=== PATIENT | male | born 1985 | race Caucasian/White ===

== ENCOUNTER 2019-04-22 15:37 | Emergency (ER) | payer MEDICAID ==
[~2019-04-22] VITALS: Ht 177.8 cm; Wt 86.2 kg
[2019-04-22 15:51] VITALS: BP_SYST 126
[2019-04-22] MEDS ORDERED: LIDOCAINE/EPI 2% 1:100000 20 ML VIAL INJ ONE (16:00)
[2019-04-22] MEDS ORDERED: IBUPROFEN 600 MG TABLET PO ONE (16:00)
[2019-04-22 17:12] VITALS: BP_SYST 126
== END 2019-04-22 17:12 | disposition home or self-care (01) ==
LOC: SED 15:37
DX: L02.416 Cutaneous abscess of left lower limb (principal); R03.0 Elevated blood-pressure reading, without diagnosis of hypertension; F12.90 Cannabis use, unspecified, uncomplicated; F17.210 Nicotine dependence, cigarettes, uncomplicated; Z71.6 Tobacco abuse counseling
CPT/HCPCS: 99283

== ENCOUNTER 2019-04-24 16:26 | Inpatient (IN) | payer MEDICAID ==
[~2019-04-24] VITALS: Ht 177.8 cm; Wt 87.1 kg
[2019-04-24 17:03] VITALS: BP_SYST 117
--- NOTE | 2019-04-24 17:12 | NUR ---
Pt called for bed placement no answer
--- NOTE | 2019-04-24 17:50 | NUR ---
Patient to ER bed 7 to gown for evaluation. Side rails up. Report given to Haven HOGAN.
--- NOTE | 2019-04-24 18:08 | NUR ---
ISAIAS Rinaldi examining patient.
--- NOTE | 2019-04-24 18:10 | NUR ---
Dr. Goodman at bedside.
--- NOTE | 2019-04-24 18:12 | NUR ---
Patient brought in for wound check to left thigh. Patient has increased swelling and pain to area. Site 15 cm x 33 cm. Patient on bactrim and keflex PO. Pain 8/10. Denies any fever. No other complaints/injuries per patient or as noted. Will continue to monitor.
[2019-04-24] MEDS ORDERED: MORPHINE 4 MG/ML INJ. SYRINGE IVP ONE (18:15)
[2019-04-24] MEDS ORDERED: DIPHENHYDRAMINE INJ 50 MG/ML VIAL IVP ONE (18:15)
[2019-04-24] MEDS ORDERED: VANCOMYCIN HCL 1,000 MG in NS 250 ML IV ONE (18:15)
--- NOTE | 2019-04-24 18:28 | NUR ---
Radiology at bedside for xrays.
--- NOTE | 2019-04-24 18:30 | NUR ---
# 18 gauge angiocath placed to LAC. Use of asceptic technique. Opsite placed over site. Blood return noted. Blood for lab drawn from site. Flushed with 10 cc of normal saline. No evidence of infiltration noted. Patient tolerated well.
--- NOTE | 2019-04-24 18:31 | NUR ---
Blood cultures drawn, prior to administration of antibiotic.
[2019-04-24] MEDS ORDERED: VANCOMYCIN HCL 1000 MG/VIAL IV ONE (18:35)
--- NOTE | 2019-04-24 18:35 | NUR ---
Medicated per QUALITY ASSURANCE MANAGER orders.
[2019-04-24 18:41] LABS: BASOPHILS % (AUTO) 0.1 % (0.0-2.0); EOSINOPHILS # (AUTO) 0.2 K/uL (0.0-0.4); EOSINOPHILS % (AUTO) 1.7 % (0.0-4.0); HEMATOCRIT 43.2 % (36-54); HEMOGLOBIN 15.2 g/dL (14.0-18.0); LYMPHOCYTES # (AUTO) 2.3 K/uL (1.0-5.5); LYMPHOCYTES % (AUTO) 21.9 % (20.5-51.5); MEAN CORPUSCULAR HEMOGLOBIN 31 pg (27-31); MEAN CORPUSCULAR HGB CONC 35 % (32-36); MEAN CORPUSCULAR VOLUME 89 fL (79.0-98.0); MONOCYTES # (AUTO) 1.2 K/uL (0.0-1.0); MONOCYTES % (AUTO) 11.2 % (1.7-9.3); NEUTROPHILS % (AUTO) 65.1 % (40.0-70.0); PLATELET COUNT (AUTO) 258 K/uL (130-430); RED BLOOD CELL COUNT(AUTO) 4.87 MIL/uL (4.2-6.2); RED CELL DISTRIBUTION WIDTH 12.9 % (9.0-15.0); WHITE BLOOD COUNT (AUTO) 10.7 K/uL (4.8-10.8)
[2019-04-24] MEDS ORDERED: LIDOCAINE/EPI 2% 1:100000 20 ML VIAL INJ ONE (18:45)
[2019-04-24 18:54] LABS: CALCIUM 8.5 mg/dL (8.4-11.0); CREATININE 1.11 mg/dL (0.55-1.30); POTASSIUM 3.8 mmol/L (3.5-5.1)
[2019-04-24 19:00] LABS: ALBUMIN 3.2 g/dL (3.4-4.8); TOTAL BILIRUBIN 0.1 mg/dL (0.0-1.0)
--- NOTE | 2019-04-24 19:17 | NUR ---
Site to left thigh cleansed with normal saline and betadine. Site measures approximately 15 cm x 33 cm dressing applied. Tetanus vaccination current.
--- NOTE | 2019-04-24 19:19 | NUR ---
Patient states he is full code
--- NOTE | 2019-04-24 19:19 | NUR ---
Patient reports taking no medication
--- NOTE | 2019-04-24 19:37 | NUR ---
Dr. Payne at bedside speaking to patient.
[2019-04-24] MEDS ORDERED: TEMAZEPAM 15 MG CAPSULE PO PRN (20:00)
[2019-04-24] MEDS ORDERED: ACETAMINOPHEN 325 MG TABLET PO PRN (20:00)
[2019-04-24] MEDS ORDERED: HYDROcodone/ACETAMIN 5-325 MG TAB (NORCO/ VICODIN) PO PRN (20:00)
[2019-04-24] MEDS ORDERED: HYDROcodone/ACETAMIN 10-325 MG TAB PO PRN (20:00)
--- NOTE | 2019-04-24 20:35 | NUR ---
Patient will be admitted to care of Dr. Payne. Admitted to Med surg unit. Will go to room 101B. Summary report printed. Report will be given at bedside.
[2019-04-24] MEDS ORDERED: ENOXAPARIN SODIUM 40 MG/0.4 ML SYRINGE SUBCUT SCH (21:00)
[2019-04-24] MEDS ORDERED: DOXYCYCLINE HYCLATE 100 MG CAPSULE PO SCH (21:00)
[2019-04-24 21:32] LABS: BILIRUBIN,URINE NEGATIVE (NEGATIVE); BLOOD, URINE NEGATIVE (NEGATIVE); CLARITY/URINE OTHER (CLEAR); COLOR,URINE YELLOW (YELLOW); GLUCOSE,URINE NEGATIVE (NEGATIVE); KETONES,URINE NEGATIVE (NEGATIVE); LEUKOCYTE ESTERASE ,URINE TRACE (NEGATIVE); NITRITE, URINE NEGATIVE (NEGATIVE); PROTEIN URINE TRACE (NEGATIVE)
--- NOTE | 2019-04-24 21:35 | NUR ---
ADMISSION NOTE Received patient from ER via gurney. Patient admitted with diagnosis of CELLULITIS. Patient is awake, alert, oriented X 4, ambulated to bed, steady gait. Patient oriented to hospital room, call light, toileting, pain management and safety-teach back done. Personal belongings checked and Belongings List documented. Call light within reach.
--- NOTE | 2019-04-24 21:40 | NUR ---
INITIAL NOTES Patient is resting with significant other at bedside. No signs of acute respiratory distress observed. IV at Left AC patent, dressings c/d/i. Call light within reach, bed alarm refused after patient education on risks and benefits. Bed at lowest position. Will continue to monitor.
[2019-04-24 22:01] LABS: BARBITURATE, URINE NEGATIVE (NEG <=200); METHAMPHETAMINES SCREEN,URINE POSITIVE (NEG <=500); URINE AMPHETAMINE POSITIVE (NEG <=500)
[2019-04-24 22:02] LABS: BENZODIAZEPINE, URINE POSITIVE (NEG <=150); CANNABINOID, URINE POSITIVE (NEG <=50); COCAINE, URINE NEGATIVE (NEG <=150); OPIATE, URINE POSITIVE (NEG <=100); PHENCYCLIDINE SCREEN,URINE NEGATIVE (NEG <=25); UR TRICYCLIC ANTIDEPRESSANTS NEGATIVE (NEG <=300); URINE METHADONE NEGATIVE (NEG <=200); URINE OXYCODONE SCREEN NEGATIVE (NEG <=100); URINE PROPOXYPHENE SCREEN NEGATIVE (NEG <=300)
[2019-04-24] MEDS ORDERED: CEFAZOLIN 1 GM IVPB PREMIX 100 ML IV ONE (22:11)
[2019-04-24 22:22] VITALS: BP_SYST 125
--- NOTE | 2019-04-24 22:22 | NUR ---
CONSULTATION PAGED/CALLED Reason for Consultation: CELLULITIS Person Who was Notified: CLAUDY Consulting Physician: DR. COVARRUBIAS Journeyman [employer] Specialty: Ordering Physician: DR. WHITE
--- NOTE | 2019-04-24 22:44 | NUR ---
Patient is assisted with significant other and medical staff outside to smoke on wheelchair. Will continue to monitor.
[2019-04-24 22:59] LABS: BACTERIA,URINE FEW /HPF (None Seen); RBC,URINE 0-3 /HPF (0-3)
[2019-04-24 23:00] LABS: MUCUS,URINE 1+ /LPF (None Seen)
[2019-04-24] MEDS: CEFAZOLIN 1 GM IVPB PREMIX 50 ML IV SCH (23:28)
[2019-04-25] VITALS: BP_SYST 124
[2019-04-25] MEDS ORDERED: FLU VACC QS2019-20 36MOS UP/PF 60 MCG/0.5 ML SYRINGE I.M. SCH
--- NOTE | 2019-04-25 00:38 | NUR ---
Patient is asleep, eyes closed. No signs of acute respiratory distress observed. Left foot elevated with pillow. Safety precautions in place. Will continue to monitor.
--- NOTE | 2019-04-25 02:11 | NUR ---
Patient is resting, eyes closed. No signs of SOB. Safety precautions in place. Will continue to monitor.
--- NOTE | 2019-04-25 04:13 | NUR ---
Patient is asleep, no signs of acute respiratory distress observed. Safety precautions in place. Will continue to monitor.
[2019-04-25] MEDS: CEFAZOLIN 1 GM IVPB PREMIX 50 ML IV SCH (05:40)
--- NOTE | 2019-04-25 06:36 | NUR ---
CLOSING NOTES Patient is resting, no signs of acute respiratory distress observed. Foam dressing c/d/i. IV dressings c/d/i. Bed alarm refused after risks and benefits explained and patient verbalizes understanding. Call light within reach, and bed at lowest position. Will endorse shift to oncoming shift.
[2019-04-25 06:41] LABS: BASOPHILS % (AUTO) 0.1 % (0.0-2.0); EOSINOPHILS # (AUTO) 0.2 K/uL (0.0-0.4); EOSINOPHILS % (AUTO) 2.1 % (0.0-4.0); HEMATOCRIT 42.9 % (36-54); HEMOGLOBIN 14.9 g/dL (14.0-18.0); LYMPHOCYTES % (AUTO) 22.1 % (20.5-51.5); MEAN CORPUSCULAR HEMOGLOBIN 31 pg (27-31); MEAN CORPUSCULAR HGB CONC 35 % (32-36); MEAN CORPUSCULAR VOLUME 89 fL (79.0-98.0); MONOCYTES # (AUTO) 1.1 K/uL (0.0-1.0); MONOCYTES % (AUTO) 12.4 % (1.7-9.3); NEUTROPHILS # (AUTO) 5.7 K/uL (1.8-7.7); NEUTROPHILS % (AUTO) 63.3 % (40.0-70.0); PLATELET COUNT (AUTO) 248 K/uL (130-430); RED BLOOD CELL COUNT(AUTO) 4.84 MIL/uL (4.2-6.2); RED CELL DISTRIBUTION WIDTH 13.1 % (9.0-15.0); WHITE BLOOD COUNT (AUTO) 9.1 K/uL (4.8-10.8)
[2019-04-25 07:30] LABS: ALBUMIN 2.9 g/dL (3.4-4.8); CALCIUM 8.1 mg/dL (8.4-11.0); CREATININE 0.85 mg/dL (0.55-1.30); POTASSIUM 3.5 mmol/L (3.5-5.1); TOTAL BILIRUBIN 0.3 mg/dL (0.0-1.0)
--- NOTE | 2019-04-25 08:00 | NUR ---
OPENING NOTES, RECEIVED PT IN BED, PT IS AAOX4, C/O SLIGHT PAIN, 2/10 ON HIS LEFT LEG, VITALS WNL, NO FEVER. PT ENCOURAGED TO CALL FOR ASSIST AND PAIN MED. SAFETY PRECAUTION IN PLACE. WILL CONT TO MONITOR.
[2019-04-25 08:07] VITALS: BP_SYST 128
--- NOTE | 2019-04-25 08:39 | NUR ---
PATIENT LEFT AMA, PT SIGNED AMA FORM, STATED HE JUST DOES NOT WANT TO BE HERE, PT APPEARS TO BE HAVING ISSUES WITH A VISITOR IN THE ROOM. WHEN I WAS REMOVING HIS IV, PT LEFT IN HASTE TO GO AFTER THE FEMALE VISITOR. STATED HE WILL COME BACK TO HAVE IT TAKEN OFF.
[2019-04-25 08:55] LABS: ERYTHROCYTE SEDIMENTATION RATE 44 MM/HR (0-15)
--- NOTE | 2019-04-25 09:38 | NUR ---
CALLED [facility] OFFICE TO REPORT INCIDENT. Addendum: 04/25/19 at 0958 by Dawson Pride RN PER SUZY NG IV WAS TAKEN OFF AT E.R. Addendum: 04/25/19 at 1017 by Dawson Pride RN UNABLE TO ASSESS PATIENT , MST INTERVENTIONS NOT DONE. DR WHITE HERE AND MADE AWARE.
[2019-04-25] MEDS ORDERED: ONDANSETRON 4 MG ODT TAB PO PRN (20:00)
== END 2019-04-25 08:39 | disposition left against medical advice (07) | DRG 463 ==
LOC: SED 16:26 → SMU 19:41
PROVIDERS: ADMIT Internal Medicine; ATTEND Internal Medicine
PROC: 0H9LXZZ Drainage of Left Lower Leg Skin, External Approach (ICD-10-PCS; principal; 2019-04-24)
DX: N39.0 Urinary tract infection, site not specified (principal); E44.1 Mild protein-calorie malnutrition; L02.416 Cutaneous abscess of left lower limb; L03.116 Cellulitis of left lower limb; E87.1 Hypo-osmolality and hyponatremia; F12.10 Cannabis abuse, uncomplicated; F17.210 Nicotine dependence, cigarettes, uncomplicated
CPT/HCPCS: 10060; 36415; 73590-TC; 80053; 80307; 81000-TC; 83605; 85025; 85651-TC; 87040-TC; 87070-TC; 87086; 87186-TC; 96365; 96366; 96375; 99285; J0690; J1200; J1650; J2270; J3370

== ENCOUNTER 2022-05-11 19:18 | Emergency (ER) | payer MEDICAID, OTHER ==
[~2022-05-11] VITALS: Ht 177.8 cm; Wt 81.6 kg
[2022-05-11 19:41] VITALS: BP_SYST 144
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
--- NOTE | 2022-05-11 20:05 | NUR ---
MD DR HAYES AT BEDSIDE
--- NOTE | 2022-05-11 20:26 | NUR ---
Patient to ER bed 04 to gown for evaluation. Side rails up. Report given to Bandar HOGAN
--- NOTE | 2022-05-11 22:22 | NUR ---
REPORT GIVEN TO SAMIRA YATES. PT IN STABLE CONDITION VSS.
--- NOTE | 2022-05-11 22:46 | NUR ---
Patient given written and verbal discharge instructions and verbalizes understanding. ER MD discussed with patient the results and treatment provided. Patient in stable condition. ID arm band removed. Patient educated on pain management and to follow up with PMD. Pain Scale 0/10. Opportunity for questions provided and answered. Medication side effect fact sheet provided.
== END 2022-05-11 22:45 | disposition home or self-care (01) ==
LOC: SED 19:18
DX: S62.350A Nondisplaced fracture of shaft of second metacarpal bone, right hand, initial encounter for closed fracture (principal); Z48.02 Encounter for removal of sutures; Z79.899 Other long term (current) drug therapy; X58.XXXA Exposure to other specified factors, initial encounter; Y93.89 Activity, other specified; Y92.89 Other specified places as the place of occurrence of the external cause; Y99.8 Other external cause status
CPT/HCPCS: 99283